=== PATIENT | male | born 1950 | race Caucasian/White ===

== ENCOUNTER 2016-12-19 06:29 | Day surgery (SDC) | payer OTHER, BC ==
[~2016-12-19] VITALS: Ht 180.3 cm; Wt 100.0 kg
[~2016-12-19 06:29] MED LIST: BESIVANCE5 ML LEFT EYE; CENTRUM SILVER1 EAC3 PO; CIPRO500 MG PO; FISH OIL300 MG PO; ILEVRO1.7 ML LEFT EYE; LOSARTAN POTASS50 MG PO; METRONIDAZOLE500 MG PO; PREDNISOLONE AC15 ML LEFT EYE; PROBIOTIC1 EAC1 PO; PROVENTIL HFA6.7 GM IH; VITAMIN D22000 UNIT PO
[2016-12-19] MEDS ORDERED: LIPITOR10 MG PO (06:54)
[2016-12-19 06:59] VITALS: BP 142/81
[2016-12-19 10:11] VITALS: BP 122/74
[2016-12-19 10:54] VITALS: BP 110/70
== END 2016-12-19 10:54 | disposition home or self-care (01) ==
LOC: SDC 06:29
DX: H35.372 Puckering of macula, left eye (principal); H35.81 Retinal edema; J45.909 Unspecified asthma, uncomplicated; H90.3 Sensorineural hearing loss, bilateral; E66.9 Obesity, unspecified; Z68.31 Body mass index [BMI] 31.0-31.9, adult; I10 Essential (primary) hypertension; F32.9 Major depressive disorder, single episode, unspecified; E78.00 Pure hypercholesterolemia, unspecified; Z87.891 Personal history of nicotine dependence; Z82.3 Family history of stroke; Z80.8 Family history of malignant neoplasm of other organs or systems; Z81.8 Family history of other mental and behavioral disorders
CPT/HCPCS: J0690; J0713; J2250; J2405; J3010; J3300